=== PATIENT | male | born 1955 | race African-American/Black ===

== ENCOUNTER 2016-12-25 02:55 | Emergency (ER) | payer MEDICAID ==
[~2016-12-25] VITALS: Ht 182.9 cm; Wt 78.0 kg
[~2016-12-25 02:55] MED LIST: ALPR.5 PO; AMIO200 PO; ASPI81 PO; ATOR40TA49 PO; DOCU1CAP39 PO; FURO20 PO; KCL20 PO; LISI-360 PO; LORTA5 PO; NEUR100C PO
[2016-12-25 03:02] VITALS: BP 149/87; PULSE 55; RESP 13; TEMP 98.2; O2SAT 99
[2016-12-25] MEDS ORDERED: AMIO200T PO (03:02)
[2016-12-25] MEDS ORDERED: LISI10TA3 PO (03:02)
[2016-12-25] MEDS ORDERED: ALPR.5 PO (03:02)
[2016-12-25] MEDS ORDERED: ASPI81CH CHEW (03:02)
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
[2016-12-25] MEDS ORDERED: ACETAMINOPHEN 325 MG TAB PO ONE (04:15)
[2016-12-25] MEDS ORDERED: ONDANSETRON ODT 4 MG TAB PO ONE (04:45)
== END 2016-12-25 05:03 | disposition home or self-care (01) ==
LOC: NEPC 02:55
DX: S01.01XA Laceration without foreign body of scalp, initial encounter (principal); I25.2 Old myocardial infarction; E11.9 Type 2 diabetes mellitus without complications; I25.10 Atherosclerotic heart disease of native coronary artery without angina pectoris; I10 Essential (primary) hypertension; I48.91 Unspecified atrial fibrillation; Z79.01 Long term (current) use of anticoagulants; Z95.1 Presence of aortocoronary bypass graft; Y09 Assault by unspecified means
CPT/HCPCS: 70450; 72125

== ENCOUNTER 2017-09-16 17:09 | Emergency (ER) | payer MEDICAID ==
[~2017-09-16] VITALS: Ht 188 cm; Wt 80.0 kg
[~2017-09-16 17:09] MED LIST changes: -AMIO200 PO; +AMIO200T PO; +ASPI-516 CHEW; -ASPI81 PO; -ATOR40TA49 PO; -DOCU1CAP39 PO; -FURO20 PO; -KCL20 PO; -LISI-360 PO; +LISI10TA3 PO; -LORTA5 PO; -NEUR100C PO
[2017-09-16 17:19] VITALS: BP 113/75; PULSE 52; RESP 18; TEMP 98.7; O2SAT 99
[2017-09-16] MEDS ORDERED: KETOROLAC TROMETHAMINE 60 MG/2 ML (IM) VIAL IM ONE (17:45)
--- NOTE | 2017-09-16 17:45 | PD ---
HPI Chief Complaint: Pain: Acute or Chronic Time Seen by Provider: 17:31 Travel History International Travel<30 days: No Contact w/Intl Traveler<30days: No Traveled to known affect area: No History of Present Illness HPI 62 y/o male presents presents with pain to his right hip area that is been bothering him for the past couple of days. He denies any trauma. The pain is sharp. It does not migrate anywhere. Severity is moderate. The pain is worse with movement. He denies other modifying factors. He denies any associated complaints. PFSH Past Medical History Hx Anticoagulant Therapy: Yes Arthritis: Yes Heart Rhythm Problems: Yes (a-fib,a-flutter) Cancer: No Cardiovascular Problems: Yes (CABG X 2 VESSEL, HTN) High Cholesterol: Yes Cerebrovascular Accident: Yes Diabetes: Yes Patient Takes Glucophage: No Diminished Hearing: No Gastrointestinal Disorders: No Genitourinary: No Hypertension: Yes Immune Disorder: No Implanted Vascular Access Dvce: Yes Musculoskeletal: Yes Psychiatric: No Reproductive: No Respiratory: No Immunizations Current: Yes Past Surgical History Abdominal Surgery: Yes (galldbladder removed ) Body Medical Devices: chip to left chest Cardiac Surgery: Yes (cabg 2014) Cholecystectomy: Yes Other Surgery: Yes (ABLATION) Social History Alcohol Use: Yes (FEW TIMES A WEEK GLASS OF WINE) Tobacco Use: No (reportedly quit in 2014) Substance Use: No Allergies-Medications (Allergen,Severity, Reaction): Coded Allergies: No Known Allergies (Unverified , 05/18/16) Reported Meds & Prescriptions Reported Meds & Active Scripts Active Skelaxin (Metaxalone) 800 Mg Tablet 800 Mg PO HS PRN Reported Lisinopril 10 Mg Tab 10 Mg PO DAILY Aspirin 81 Mg Chew 81 Mg CHEW DAILY Amiodarone (Amiodarone HCl) 200 Mg Tab 200 Mg PO BID Review of Systems Except as stated in HPI: all other systems reviewed are Neg Physical Exam Narrative General: 62 y/o patient in no apparent distress Skin: Warm and dry Eyes: Pupils equal ENT: no septal hematoma NECK: Trachea midline Cardiovascular: Regular rate and rhythm Respiratory: Normal respiratory effort noted Abdomen: soft, nontender, nondistended Back: No step-offs, midline spine nontender with palpation Extremities: Pain with palpation of right lateral femoral cutaneous area, no lacerations over, neurovascularly intact, no pain with rom of other joints other than palpation of right hip area as described above Neuro: awake, alert, sensation and motor grossly intact Data Data Last Documented VS Vital Signs Date Time Temp Pulse Resp B/P (MAP) Pulse Ox O2 Delivery O2 Flow Rate FiO2 09/16/17 18:11 93 18 99 Room Air 09/16/17 17:19 98.7 113/75 (88) Orders Orders Ketorolac Inj (Toradol Inj) (09/16/17 17:45) Hip, Uni(Ap&Lat) W Ap Pelvis (09/16/17 ) Ed Discharge Order (09/16/17 18:34) [facility] Medical Decision Making Medical Screen Exam Complete: Yes Emergency Medical Condition: Yes Medical Record Reviewed: Yes (pmh confirmed) Interpretation(s) xray no fracture Differential Diagnosis Fracture, strain, sprain Narrative Course Will check x-ray and dose with Toradol and reevaluate ed workup no acute, Patient denies any new complaints, all questions answered. Patient knows that follow up is incumbent on them and to return to the emergency room immediately if new or worsening symptoms develop. Patient given strict return precautions, vitals reviewed and are normal, agrees to further workup as an outpatient. case management to assist with Diagnosis Primary Impression: Hip pain, right Patient Instructions: General Instructions Additional Instructions: return as needed, tylenol as needed, follow with primary this week Med/Other Pt SpecificInfo: Prescription(s) given Scripts Metaxalone (Skelaxin) 800 Mg Tablet 800 MG PO HS Y for PAIN SCALE 1 TO 10, #15 Prov: Lupis Shaw MD 09/16/17 Disposition: 01 DISCHARGE HOME Condition: Stable Lupis Shaw MD Sep 16, 2017 17:45
[2017-09-16 18:11] VITALS: PULSE 93; RESP 18; O2SAT 99
--- NOTE | 2017-09-16 18:33 | RADRPT ---
EXAM DATE/TIME: 09/16/2017 17:59 [facility] COMPARISON: No previous studies available for comparison. INDICATIONS : Posterior right hip pain. MEDICAL HISTORY : Hypertension. Cardiovascular disease CVA. SURGICAL HISTORY : Cholecystectomy. CABG ENCOUNTER: Initial ACUITY: 3 days PAIN SCORE: 9/10 LOCATION: Right Hip FINDINGS: No definite fractures, or dislocations are identified. No definite lytic or sclerotic lesion is seen . The joint spaces are well maintained. CONCLUSION: Unremarkable study. Wilson Aponte MD on September 16, 2017 at 18:30 Board Certified Radiologist. This report was verified electronically.
[2017-09-16] MEDS ORDERED: META800 PO (18:36)
== END 2017-09-16 20:00 | disposition home or self-care (01) ==
LOC: NEPC 17:09 → NEDAMB 20:00
DX: M25.551 Pain in right hip (principal); I10 Essential (primary) hypertension; E78.00 Pure hypercholesterolemia, unspecified; E11.9 Type 2 diabetes mellitus without complications; M19.90 Unspecified osteoarthritis, unspecified site; I48.91 Unspecified atrial fibrillation; I48.92 Unspecified atrial flutter; Z86.73 Personal history of transient ischemic attack (TIA), and cerebral infarction without residual deficits; Z79.82 Long term (current) use of aspirin
CPT/HCPCS: 73502; 96372; 99283; J1885